=== PATIENT | male | born 1970 | race Caucasian/White ===

== ENCOUNTER 2018-03-12 21:02 | Emergency (ER) | payer SELFPAY ==
[~2018-03-12] VITALS: Ht 167.6 cm; Wt 81.6 kg
[2018-03-12 21:02] VITALS: BP_SYST 122
[2018-03-12] MEDS ORDERED: IBUPROFEN 800 MG TABLET PO ONE (21:45)
[2018-03-12 21:52] VITALS: BP_SYST 126
== END 2018-03-12 21:52 ==
LOC: SED 21:02
DX: S16.1XXA Strain of muscle, fascia and tendon at neck level, initial encounter (principal); F10.129 Alcohol abuse with intoxication, unspecified; V89.2XXA Person injured in unspecified motor-vehicle accident, traffic, initial encounter; Y93.89 Activity, other specified; Y92.410 Unspecified street and highway as the place of occurrence of the external cause; Y99.8 Other external cause status
CPT/HCPCS: 99283